=== PATIENT | female | born 2000 | race Two or more races ===

== ENCOUNTER 2022-02-19 16:19 | Day surgery (SDC) | payer OTHER ==
[~2022-02-19] VITALS: Ht 152.4 cm; Wt 52.2 kg
--- NOTE | 2022-02-19 05:21 | NUR ---
PTE ALERTA Y ORIENTADA X3 ACOMPANADA.PTE AL MOMENTO EN PROCESO DE ABORTO ESPONTANEO Y PRESENTA SANGRADO PROFUSO.
--- NOTE | 2022-02-19 06:20 | NUR ---
[place]. OFRECIDO POR MIS. KNIGHT QUIEN ORIENTA AL PACIENTE SOBRE EL [place]. EXTRAE MUESTRAS DE LEONORA BAJO MEDIDAS ASEPTICAS ROTULA Y ENVIA AL LABORATORIO. CANALIZA Y ADMINISTRA MEDICAMENTO LIZA ORDEN MEDICA.
== END 2022-02-19 17:55 | disposition home or self-care (01) ==
LOC: ER 16:19 → CIR.AMB 16:19 → O/R 16:19 → CIR.AMB 16:19 → O/R 17:55 → CIR.AMB 17:55
PROVIDERS: ATTEND General Practice
DX: O03.4 Incomplete spontaneous abortion without complication (principal); O73.1 Retained portions of placenta and membranes, without hemorrhage; Z20.822 Contact with and (suspected) exposure to COVID-19

== ENCOUNTER → 2023-09-23 | Outpatient (CLI) | payer OTHER | END | disposition home or self-care (01) | LOC: PRENATAL 08:14 | PROVIDERS: ATTEND Obstetrics & Gynecology Maternal & Fetal Medicine | DX: O35.9XX0 Maternal care for (suspected) fetal abnormality and damage, unspecified, not applicable or unspecified (principal); O35.3XX0 Maternal care for (suspected) damage to fetus from viral disease in mother, not applicable or unspecified; O44.00 Complete placenta previa NOS or without hemorrhage, unspecified trimester; Z3A.19 19 weeks gestation of pregnancy ==

== ENCOUNTER 2023-10-05 16:31 | Emergency (ER) | payer OTHER ==
[~2023-10-05] VITALS: Ht 152.4 cm; Wt 55.8 kg
[2023-10-05] MEDS ORDERED: GUAIFENESIN/DEXTROMETHORPHAN 10ML BLIST.PACK PO STA ×2 (20:02→20:11)
[2023-10-05] MEDS ORDERED: CETIRIZINE HCL 5 MG/5 ML ML PO STA (20:02)
[2023-10-05 20:27] LABS: HEMOGLOBIN 11.4 g/dL (12.0-15.00); MEAN CELL VOLUME 82.9 fL (80.00-100.00); MEAN CORPUSCULAR HEMOGLOBIN 28.7 pg (27.00-32.0); MEAN CORPUSCULAR HGB CONC 34.6 g/dl (32.0-36.0); PLATELET COUNT 308 K/uL (150-450); RED BLOOD COUNT 3.98 M/uL (4.00-6.00); RED CELL DISTRIBUTION WIDTH 15.5 % (11.5-14.5)
[2023-10-05 21:25] LABS: ALBUMIN 2.9 gm/dL (3.4-5.0); BILIRUBIN TOTAL 0.27 mg/dL (0.3-1.2); CALCIUM 8.4 mg/dL (8.5-10.1); CREATININE SERUM 0.4 mg/dL (0.55-1.02); GFR 197.8; GLOBULINA 3.7 G/DL (2.4-3.5); POTASSIUM 3.7 mEq/L (3.5-5.1); TOTAL PROTEIN 6.6 gm/dL (6.4-8.2)
[2023-10-05 21:41] LABS: URINE APPEARANCE Turbid; URINE BILIRRUBIN Negative (NEGATIVE); URINE BLOOD Negative; URINE COLOR Dark Yellow; URINE GLUCOSE Negative (NEGATIVE); URINE LEUKOCYTE Moderate; URINE NITRATE Negative; URINE PROTEIN 30 (NEGATIVE)
[2023-10-05 21:51] LABS: URINE RBC 6.1 uL (0.0-20.8); URINE WBC 796.6 uL (0.0-23.2)
[2023-10-05 22:21] LABS: URINE BACTERIA > 9821.5 uL (0.0-1933); URINE EPITHELIAL CELLS > 201.7 uL (0.0-38.8)
[2023-10-05 22:23] LABS: URINE YEAST NEGATIVE /hpf
== END 2023-10-05 22:45 | disposition home or self-care (01) ==
LOC: ER 16:32
PROVIDERS: General Practice
DX: O98.512 Other viral diseases complicating pregnancy, second trimester (principal); U07.1 COVID-19; O23.42 Unspecified infection of urinary tract in pregnancy, second trimester; N39.0 Urinary tract infection, site not specified; O99.282 Endocrine, nutritional and metabolic diseases complicating pregnancy, second trimester; Z3A.20 20 weeks gestation of pregnancy

== ENCOUNTER 2023-11-25 13:46 | Outpatient (CLI) | payer OTHER | END 2023-11-25 13:48 | disposition home or self-care (01) | LOC: PRENATAL 13:46 | PROVIDERS: ATTEND Obstetrics & Gynecology Maternal & Fetal Medicine | DX: O26.849 Uterine size-date discrepancy, unspecified trimester (principal); O99.280 Endocrine, nutritional and metabolic diseases complicating pregnancy, unspecified trimester; O99.019 Anemia complicating pregnancy, unspecified trimester; Z3A.28 28 weeks gestation of pregnancy ==

== ENCOUNTER → 2024-01-06 11:13 | Outpatient (CLI) | payer OTHER | END | disposition home or self-care (01) | LOC: PRENATAL 11:13 | PROVIDERS: ATTEND Obstetrics & Gynecology Maternal & Fetal Medicine | DX: O26.849 Uterine size-date discrepancy, unspecified trimester (principal); O36.8199 Decreased fetal movements, unspecified trimester, other fetus; O99.280 Endocrine, nutritional and metabolic diseases complicating pregnancy, unspecified trimester; O99.019 Anemia complicating pregnancy, unspecified trimester; Z3A.34 34 weeks gestation of pregnancy ==

== ENCOUNTER 2024-02-13 03:16 | Inpatient (IN) | payer OTHER ==
[~2024-02-13] VITALS: Ht 152.4 cm; Wt 67.1 kg
[2024-02-13 03:00] VITALS: BP 107/70
[2024-02-13] MEDS ORDERED: RINGERS SOLUTION,LACTATED 1,000 ML IV SCH (03:30)
[2024-02-13 04:47] LABS: PH,URINE 6.5 (5.0-8.0); URINE APPEARANCE Clear; URINE BILIRRUBIN Negative (NEGATIVE); URINE BLOOD Negative; URINE COLOR Yellow; URINE GLUCOSE Negative (NEGATIVE); URINE KETONE Negative (NEGATIVE); URINE LEUKOCYTE Trace; URINE NITRATE Negative; URINE PROTEIN Negative (NEGATIVE); URINE UROBILINOGEN 0.2 E.U./dl
[2024-02-13 04:51] LABS: URINE BACTERIA 413.2 uL (0.0-1933); URINE EPITHELIAL CELLS 12.9 uL (0.0-38.8); URINE RBC 69.7 uL (0.0-20.8)
[2024-02-13 05:03] LABS: INR 0.94; PARTIAL THROMBOPLASTIN TIME 30.1 SECONDS (22.0-34.0); PROTHROMBIN TIME 10.3 SECONDS (9.0-11.5)
[2024-02-13 05:07] LABS: HEMATOCRIT 39.6 % (36.0-45.00); HEMOGLOBIN 13.3 g/dL (12.0-15.00); MEAN CORPUSCULAR HEMOGLOBIN 27.8 pg (27.00-32.0); MEAN CORPUSCULAR HGB CONC 33.5 g/dl (32.0-36.0); PLATELET COUNT 300 K/uL (150-450); RED BLOOD COUNT 4.77 M/uL (4.00-6.00)
[2024-02-13 05:08] LABS: ALBUMIN 2.8 gm/dL (3.4-5.0); BILIRUBIN TOTAL 0.33 mg/dL (0.3-1.2); CALCIUM 9.3 mg/dL (8.5-10.1); CREATININE SERUM 0.35 mg/dL (0.55-1.02); GFR 228.77; GLOBULINA 3.8 G/DL (2.4-3.5); POTASSIUM 4.23 mEq/L (3.5-5.1); RED CELL DISTRIBUTION WIDTH 22.2 % (11.5-14.5); TOTAL PROTEIN 6.6 gm/dL (6.4-8.2)
[2024-02-13] MEDS ORDERED: PRENATAL TABLE1 EAC1 PO (05:11)
[2024-02-13] MEDS ORDERED: LEVOTHYROXINE25 MCG PO (05:13)
[2024-02-13] MEDS ORDERED: SYNTHROID200 MCG PO (05:13)
[2024-02-13] MEDS ORDERED: AMPICILLIN SODIUM 2,000 MG VIAL IV ONE (05:30)
[2024-02-13 07:59] VITALS: BP 114/46
[2024-02-13] MEDS ORDERED: AMPICILLIN SODIUM 1,000 MG VIAL IV SCH (08:00)
[2024-02-13] MEDS ORDERED: OXYTOCIN 500 ML IV SCH (11:45)
[2024-02-13 12:16] VITALS: BP 107/68
[2024-02-13 16:48] VITALS: BP 119/50
[2024-02-13] MEDS ORDERED: CEFAZOLIN SODIUM 1,000 MG VIAL IV SCH (18:45)
[2024-02-13] MEDS ORDERED: ERYTHROMYCIN BASE OPHT 1GM EACH TUBE OP ONE (19:15)
[2024-02-13] MEDS ORDERED: OXYTOCIN 10 UNITS/ML VIAL IV ONE (19:15)
[2024-02-13] MEDS ORDERED: MORPHINE SULFATE 4 MG/ML CARTRIDGE IV PRN (20:15)
[2024-02-13] MEDS ORDERED: ONDANSETRON HCL 2 MG/ML VIAL IV PRN (20:15)
[2024-02-13] MEDS ORDERED: CEFOXITIN SODIUM 2,000 MG VIAL IV SCH (20:30)
[2024-02-13] MEDS ORDERED: SIMETHICONE 125 MG CAPSULE PO SCH (21:00)
[2024-02-13] MEDS ORDERED: METOCLOPRAMIDE HCL 5 MG/ML VIAL IV SCH (22:15)
[2024-02-13] MEDS ORDERED: OXYTOCIN 1,000 ML IV SCH (22:15)
[2024-02-14] MEDS ORDERED: KETOROLAC TROMETHAMINE 30 MG VIAL IV SCH
[2024-02-14 05:17] VITALS: BP 117/71
[2024-02-14] MEDS ORDERED: LEVOTHYROXINE SODIUM 175 MCG TABLET PO SCH (06:00)
[2024-02-14 07:04] LABS: HEMATOCRIT 36.5 % (36.0-45.00); MEAN CORPUSCULAR HEMOGLOBIN 27.7 pg (27.00-32.0); PLATELET COUNT 294 K/uL (150-450); RED BLOOD COUNT 4.35 M/uL (4.00-6.00); RED CELL DISTRIBUTION WIDTH 22.1 % (11.5-14.5)
[2024-02-14 09:00] VITALS: BP 98/55
[2024-02-14] MEDS ORDERED: IBUprofen 800 MG TABLET PO SCH (09:00)
[2024-02-14] MEDS ORDERED: ACETAMINOPHEN 325 MG TABLET PO SCH (12:00)
[2024-02-14 16:21] VITALS: BP 104/67
[2024-02-15] VITALS: BP 104/66
[2024-02-15 08:46] VITALS: BP 102/61
[2024-02-15] MEDS ORDERED: COLACE100 MG PO (08:58)
[2024-02-15] MEDS ORDERED: SIMETHICONE125 M1 PO (08:58)
[2024-02-15] MEDS ORDERED: IBU800 MG PO (08:58)
== END 2024-02-15 18:24 | DRG 788 ==
LOC: LDR 03:16 → O/R 19:23 → OB/GYN 02-14 00:13
PROVIDERS: Obstetrics & Gynecology; ADMIT Obstetrics & Gynecology; ATTEND Obstetrics & Gynecology
PROC: 4A1HXCZ Monitoring of Products of Conception, Cardiac Rate, External Approach (ICD-10-PCS; 2024-02-13)
PROC: 10D00Z1 Extraction of Products of Conception, Low, Open Approach (ICD-10-PCS; principal; 2024-02-13 19:45)
DX: O42.02 Full-term premature rupture of membranes, onset of labor within 24 hours of rupture (principal); O62.1 Secondary uterine inertia; Z3A.40 40 weeks gestation of pregnancy; Z37.0 Single live birth; Z20.822 Contact with and (suspected) exposure to COVID-19